=== PATIENT | female | born 1995 | race Two or more races ===

== ENCOUNTER 2016-06-27 22:12 | Emergency (ER) | payer BC ==
[~2016-06-27] VITALS: Ht 154.9 cm; Wt 67.1 kg
[2016-06-27 22:15] VITALS: BP 131/71
[2016-06-27 22:42] LABS: BILIRUBIN,URINE NEGATIVE (NEG); GLUCOSE,URINE NEGATIVE (NEG); NITRITE,URINE NEGATIVE (NEG); PH,URINE 6.5; PROTEIN,URINE NEGATIVE (NEG-TRACE); UROBILINOGEN,URINE 0.2 mg/dL (0.2 mg/dL)
[2016-06-27 22:46] LABS: BACTERIA,URINE MODERATE /HPF (0-FEW); RBC,URINE OCC /HPF (0-2); WBC,URINE OCC /HPF (0-4)
[2016-06-27 22:47] LABS: SQUAMOUS EPITHELIAL CELL,UR MOD /LPF
[2016-06-27 22:50] LABS: BASO # 0.1 x10^3/uL (0.0-0.2); BASO % 1 % (0-3); EOS % 2 % (0-3); HEMATOCRIT 42.9 % (36.0-47.0); HEMOGLOBIN 14.1 g/dL (12.0-15.5); LYMPH % 37 % (24-48); MEAN CORPUSCULAR HEMOGLOBIN 30 pg (25-35); MEAN CORPUSCULAR HGB CONC 33 g/dL (31-37); MEAN CORPUSCULAR VOLUME 89 fL (79-100); MONO % 7 % (0-9); NEUT % 53 % (31-73); PLATELET COUNT 385 x10^3/uL (140-400); RED CELL DISTRIBUTION WIDTH 13.2 % (11.5-14.5); WHITE BLOOD COUNT 13.4 x10^3/uL (4.0-11.0)
[2016-06-27 22:58] LABS: CALCIUM 9.4 mg/dL (8.5-10.1); CREATININE 0.7 mg/dL (0.6-1.0); GFR 106.7; POTASSIUM 3.6 mmol/L (3.5-5.1)
--- NOTE | 2016-06-27 23:48 | RAD ---
PROCEDURE Endovaginal OB ultrasound. HISTORY Cramping and spotting. History of miscarriage. TECHNIQUE Endovaginal imaging was performed. COMPARISON None. FINDINGS Nabothian cyst is seen. Uterus measures 7.3 centimeters in length. Intrauterine is identified with gestational sac yolk sac, and embryo seen. Mean crown-rump length is 2.45 centimeters corresponding to 9 weeks 1 day. Estimated date of delivery based on this measurement is January 29, 2017. heart motion is absent. The right ovary measures 1.9 x 2.2 x 1.8 centimeters. Right ovary demonstrates normal vascular flow upon Doppler interrogation and is without evidence of torsion. No left ovary is not seen. No adnexal masses are visualized. IMPRESSION Single intrauterine is identified. Average ultrasound age is 9 weeks 1 day. No embryonic heart motion is detected. Findings are diagnostic of intrauterine embryonic demise. Electronically signed by: Bharathi Urbano MD (Jun 27, 2016 23:46:34)
--- NOTE | 2016-06-28 00:14 | PHYS DOC ---
Past Medical History Past Medical History: Asthma, Other Additional Past Medical Histor: miscarriage Past Surgical History: Tonsillectomy, Other Additional Past Surgical Histo: d&c Alcohol Use: None Drug Use: None Adult General Chief Complaint Chief Complaint: VAGINAL BLEEDING [facility] HPI 21-year-old female who states she has an episode of spotting 2 days ago and now some mild abdominal cramping but no current vaginal bleeding. She believes she is multiple weeks and has not yet had an ultrasound for this . This is her second the first of which was a spontaneous miscarriage in the first trimester requiring a D&C. She denies any significant history other than asthma. She denies any recent shortness of breath. Currently she states she has no pain. She denies any fever or chills. She denies any dysuria or hematuria. Review of Systems Review of Systems Constitutional: Denies fever or chills [] Eyes: Denies change in visual acuity, redness, or eye pain [] HENT: Denies nasal congestion or sore throat [] Respiratory: Denies cough or shortness of breath [] Cardiovascular: No additional information not addressed in HPI [] GI: Denies abdominal pain, nausea, vomiting, bloody stools or diarrhea [] : Denies dysuria or hematuria [] Musculoskeletal: Denies back pain or joint pain [] Integument: Denies rash or skin lesions [] Neurologic: Denies headache, focal weakness or sensory changes [] Endocrine: Denies polyuria or polydipsia [] Allergies Allergies Allergies Coded Allergies Type Severity Reaction Last Updated Verified Penicillins Allergy Unknown Nausea and Vomiting 06/27/16 Yes Physical Exam Physical Exam Constitutional: Well developed, well nourished, no acute distress, non-toxic appearance. [] HENT: Normocephalic, atraumatic, bilateral external ears normal, oropharynx moist, no oral exudates, nose normal. [] Eyes: PERRLA, EOMI, conjunctiva normal, no discharge. [] Neck: Normal range of motion, no tenderness, supple, no stridor. [] Cardiovascular:Heart rate regular rhythm, no murmur [] Lungs & Thorax: Bilateral breath sounds clear to auscultation [] Abdomen: Bowel sounds normal, soft, no tenderness, no masses, no pulsatile masses. [] Pelvic exam: Pelvic exam reveals a closed cervical os with no blood seen. There is no CMT or adnexal tenderness Skin: Warm, dry, no erythema, no rash. [] Back: No tenderness, no CVA tenderness. [] Extremities: No tenderness, no cyanosis, no clubbing, ROM intact, no edema. [] Neurologic: Alert and oriented X 3, normal motor function, normal sensory function, no focal deficits noted. [] Psychologic: Affect normal, judgement normal, mood normal. [] Current Patient Data Vital Signs Vital Signs Date Time Temp Pulse Resp B/P Pulse Ox O2 Delivery O2 Flow Rate FiO2 06/27/16 22:15 98.0 90 18 131/71 99 Room Air 98.0 Lab Values Laboratory Tests Test 06/27/16 21:42 06/27/16 22:30 06/27/16 22:38 POC Urine HCG, Qualitative Hcg positive (Negative) Urine Collection Type Unknown Urine Color Yellow Urine Clarity Turbid Urine pH 6.5 Urine Specific [place] 1.010 Urine Protein Negativemg/dL (NEG-TRACE) Urine Glucose (UA) Negativemg/dL (NEG) Urine Ketones (Stick) Negativemg/dL (NEG) Urine Blood Negative (NEG) Urine Nitrite Negative (NEG) Urine Bilirubin Negative (NEG) Urine Urobilinogen Dipstick 0.2mg/dL (0.2 mg/dL) Urine Leukocyte Esterase Negative (NEG) Urine RBC Occ/HPF (0-2) Urine WBC Occ/HPF (0-4) Urine Squamous Epithelial Cells Mod/LPF Urine Bacteria Moderate/HPF (0-FEW) Urine Mucus Slight/LPF White Blood Count 13.4x10^3/uL (4.0-11.0) H Red Blood Count 4.80x10^6/uL (3.50-5.40) Hemoglobin 14.1g/dL (12.0-15.5) Hematocrit 42.9% (36.0-47.0) Mean Corpuscular Volume 89fL (79-100) Mean Corpuscular Hemoglobin 30pg (25-35) Mean Corpuscular Hemoglobin Concent 33g/dL (31-37) Red Cell Distribution Width 13.2% (11.5-14.5) Platelet Count 385x10^3/uL (140-400) Neutrophils (%) (Auto) 53% (31-73) Lymphocytes (%) (Auto) 37% (24-48) Monocytes (%) (Auto) 7% (0-9) Eosinophils (%) (Auto) 2% (0-3) Basophils (%) (Auto) 1% (0-3) Neutrophils # (Auto) 7.1x10^3uL (1.8-7.7) Lymphocytes # (Auto) 5.0x10^3/uL (1.0-4.8) H Monocytes # (Auto) 0.9x10^3/uL (0.0-1.1) Eosinophils # (Auto) 0.3x10^3/uL (0.0-0.7) Basophils # (Auto) 0.1x10^3/uL (0.0-0.2) Maternal Serum HCG Beta Subunit 3110mIU/mL (0-6) H Sodium Level 139mmol/L (136-145) Potassium Level 3.6mmol/L (3.5-5.1) Chloride Level 102mmol/L (98-107) Carbon Dioxide Level 28mmol/L (21-32) Anion Gap 9 (6-14) Blood Urea Nitrogen 10mg/dL (7-20) Creatinine 0.7mg/dL (0.6-1.0) Estimated GFR (Cockcroft-Gault) 106.7 Glucose Level 100mg/dL (70-99) H Calcium Level 9.4mg/dL (8.5-10.1) Laboratory Tests 06/27/16 22:38 Laboratory Tests 06/27/16 22:38 EKG EKG [] Radiology/Procedures Radiology/Procedures Transvaginal OB ultrasound demonstrated the following: Nabothian cyst is seen. Uterus measures 7.3 centimeters in length. Intrauterine is identified with gestational sac yolk sac, and embryo seen. Mean crown-rump length is 2.45 centimeters corresponding to 9 weeks 1 day. Estimated date of delivery based on this measurement is January 29, 2017. heart motion is absent. The right ovary measures 1.9 x 2.2 x 1.8 centimeters. Right ovary demonstrates normal vascular flow upon Doppler interrogation and is without evidence of torsion. No left ovary is not seen. No adnexal masses are visualized. Course & Med Decision Making Course & Med Decision Making Pertinent Labs and Imaging studies reviewed. (See chart for details) This 21-year-old female has a laboratory workup that unremarkable. Her transvaginal ultrasound demonstrated diagnostic findings of intrauterine demise. Her pelvic exam revealed a closed cervical os with no blood seen. I discussed these findings with the on-call OB doctor, Dr. Franco, who agreed that the patient can follow-up with an OB doctor next 1-2 days with strict instruction return if she does any worsening pain, fever, or bleeding. Patient is very agreeable with this plan and will be discharged with close follow up in the next 1-2 days with her OB doctor. Dragon Disclaimer Dragon Disclaimer This electronic medical record was generated, in whole or in part, using a voice recognition dictation system. Departure Departure Impression: Primary Impression: demise Disposition: 01 HOME, SELF-CARE Admitting Physician: Other Condition: STABLE Referrals: NO PCP (PCP) MAYRA FRANCO Jr, MD Patient Instructions: Intrauterine Demise Additional Instructions: Please follow up with your OB doctor in the next 1-2 days for your . Return to the ER immediately if you develop any worsening pain, fever, or bleeding. RENÉ MENDEZ DO Jun 28, 2016 00:14
== END 2016-06-28 00:20 | disposition home or self-care (01) ==
LOC: ER 22:12
DX: O36.4XX0 Maternal care for intrauterine death, not applicable or unspecified (principal); J45.909 Unspecified asthma, uncomplicated; Z88.0 Allergy status to penicillin; Z3A.09 9 weeks gestation of pregnancy
CPT/HCPCS: 36415; 76817; 80048; 81001; 81025; 84702; 85027; 86900; 86901; 87086; 99285-25